=== PATIENT | female | born 1990 | race Caucasian/White ===

== ENCOUNTER 2017-06-24 17:35 | Observation (INO) | payer BC ==
[2017-06-24] MEDS ORDERED: NORMAL SALINE 1,000 ML IV ONE (17:42)
[2017-06-24 17:59] LABS: Hematocrit 40.3 % (37.0-47.0); Hemoglobin 14.1 gm/dL (12.5-16.0); Mean Cell Volume 78.7 fl (78-100); Mean Corpuscular Hemoglobin 27.5 pg (27-31); Mean Platelet Volume 8.8 fl (6.0-9.5); Neutrophil # 4.7 K/mm3 (1.3-6.0); Neutrophil % 69.6 % (42-75.0); Platelet Count 253 K/mm3 (150-450); Red Blood Count 5.12 M/mm3 (4.2-5.4); Red Cell Distribution Width 13.2 % (11.5-14.0); White Blood Count 6.7 K/mm3 (4.0-10.5)
[2017-06-24 18:13] LABS: ALT 29 U/L (19-67); AST 25 U/L (0-48); Albumin * 3.9 gm/dl (3.4-5.0); Alkaline Phosphatase * 55 U/L (50-170); Anion Gap 16.7 mmol/L (6.8-13.8); BUN/Creatinine Ratio 7.2 (9.0-21.6); Bilirubin, Total 0.3 mg/dL (0.0-1.1); Blood Urea Nitrogen 5 mg/dL (3-23); Ca. Corrected For Albumin 8.6 mg/dL (8.4-10.2); Calcium * 8.8 mg/dL (7.9-10.9); Carbon Dioxide 22.3 mmol/L (24-32.6); Chloride 105 mmol/L (97-106); Glucose * 118 mg/dL (70-110); Sodium 141 mmol/L (132-142); Total Protein 8.4 gm/dL (6.2-8.2)
--- NOTE | 2017-06-24 18:17 | ERNOTE ---
Psychological HPI - Date Date of Service: 06/24/17 - General Chief Complaint: Drug Overdose Source: Reports: patient Exam Limitations: Reports: no limitations - Immun/Allergies/Home Medications Allergies/Adverse Reactions: Allergies ondansetron [From Zofran (as hydrochloride)] Adverse Reaction (Verified 17:48) - History of Present Illness Narrative: Patient presents via EMS for an overdose. it is unclear exactly when she took the OD, she cannot tell me but the medics relate she took some pills just prior to her arrival. She states she did this because her doesn't want her. She denies any pain. She has overdosed in the past by her report. No CP or SOB > No abdominal pain. No trauma. Patient by report took alcohol and 14 10mg Ambien tablets of her own, no other substances. Time Seen by Provider: 06/24/17 17:38 Arrived by: Reports: ambulance Onset/duration: Reports: continues in ED Intent: Reports: suicide Mechanism: Reports: overdose Situational Problems: Reports: spouse Associated Symptoms: Reports: suicidal thoughts Prior Treament: Denies: recently seen Review of Systems - Review of Systems Constitutional: Absent: fever Respiratory: Absent: shortness of breath Cardiology: Absent: chest pain Gastrointestinal/Abdominal: Absent: abdominal pain Neurological: Absent: weakness All Other Systems: All systems neg except as marked - Patient's Past Medical History Patient History - Surgical Procedures: No surgical history - Social History Living Situations: home Psych History: Hx of Anxiety, Hx of Depression Alcohol Use: heavy Psychological Exam - Exam General Appearance: Present: no apparent distress, other - somnolent but answering questions. Head Exam: Present: normal inspection, no evidence of injury Neurological: Present: acid dumper II-XII nml as tested Thoughts/Hallucinations: Present: no apparent hallucination Behavior/Eye Contact/Speech: Present: avoids eye contact Eye Exam: Normal inspection: bilateral, PERRL: bilateral Ears, Nose, Throat: Present: normal ENT inspection Neck: Present: normal inspection, nontender Respiratory: Present: no respiratory distress, normal breath sounds, no accessory muscle use, lungs clear Cardiovascular/Chest: Present: normal peripheral pulses, tachycardia Gastrointestinal/Abdominal: Present: normal bowel sounds, nontender, soft Extremity Exam: Present: normal inspection Skin Exam: Present: normal color, warm/dry ED Progress - Results and Orders Patient's Lab Results:: I have reviewed the patient's lab results. - Vital Signs Patient's Vital Signs:: I have reviewed the patient's vital signs. Vital Signs: Vital Signs 06/24/17 17:40 Temperature 36.9 C Pulse Rate 132 H Respiratory 15 Rate Blood Pressure 134/72 O2 Sat by Pulse 94 Oximetry - EKG EKG read: Interp. by me EKG Comments: Sinus tachycardia, Non-specific changes, no STEMI - Progress/Reassessment Chief Complaint: Drug Overdose Progress Note-Subjective: 06/24/17 18:15 Poison control notified. Symptomatic treatment. IV fluids initiated. Protecting airway. Will need ICU obs for clearance before psych eval. 06/24/17 18:[address] Pace who will admit. Poison control notified. 06/24/17 18:36 Patietn stable, still answering questions, protecting airway Departure Clinical Impression: Overdose, Suicide gesture - Departure Disposition: [facility] Condition: Good
[2017-06-24 18:27] LABS: Cocaine Ur Negative (NEGATIVE); Urine Barbiturate Negative (NEGATIVE); Urine Benzodiazepines Negative (NEGATIVE); Urine Opiates Negative (NEGATIVE); Urine PCP Negative (NEGATIVE); Urine THC Negative (NEGATIVE)
[2017-06-24 18:35] LABS: Urine Appearance Slightly Cloudy; Urine Color Yellow
[2017-06-24 18:36] LABS: Urine Bilirubin Negative (NEGATIVE); Urine Blood 10 /ul (NEGATIVE); Urine Ketone Negative (NEGATIVE); Urine Nitrite Negative (NEGATIVE); Urine Protein Negative (NEGATIVE); Urine Specific Gravity 1.005 SP.GR. (1.005-1.010); Urine Urobilinogen Normal (NORMAL)
[2017-06-24 18:37] LABS: Urine Bacteria None Seen; Urine RBC None Seen /hpf (0-5); Urine WBC 0-5 /hpf (0-5)
[2017-06-24] MEDS ORDERED: POTASSIUM CHLORIDE 20 MEQ TABLET.SA ONE (20:21)
[2017-06-24] MEDS: POTASSIUM CHLORIDE 20 MEQ TABLET.SA PO ONE ×2 (20:24→20:32)
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
[2017-06-24] MEDS ORDERED: PANTOPRAZOLE SODIUM 40 MG in NORMAL SALINE 100 ML IV SCH (21:15)
[2017-06-24] MEDS: POTASSIUM CHLORIDE 100 ML IV SCH ×2 (22:07→23:00)
[2017-06-24 22:19] LABS: Salicylate 3.7 mg/dL (2.8-20.0)
[2017-06-25] MEDS: POTASSIUM CHLORIDE 100 ML IV SCH ×2 (00:10→01:06)
[2017-06-25] MEDS ORDERED: NICOTINE 21 MG PATC TD ONE (00:34)
[2017-06-25] MEDS ORDERED: NICOTINE 21 MG PATC TD SCH ×2 (00:45→21:00)
[2017-06-25 05:40] LABS: BUN/Creatinine Ratio 6.3 (9.0-21.6); Blood Urea Nitrogen 4 mg/dL (3-23); Calcium * 8.4 mg/dL (7.9-10.9); Chloride 105 mmol/L (97-106); Estimated Creat Clear 131.8; Glucose * 102 mg/dL (70-110); Sodium 139 mmol/L (132-142)
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
[2017-06-25 12:47] VITALS: BP 138/78
[2017-06-25] MEDS ORDERED: REMOVE PATCH 1 PATCH PATCH TP SCH (21:00)
== END 2017-06-25 11:30 | disposition home or self-care (01) ==
LOC: ER 17:35 → SCU 18:49
PROVIDERS: ADMIT Internal Medicine; ATTEND Internal Medicine
PROC: 0T9B70Z Drainage of Bladder with Drainage Device, Via Natural or Artificial Opening (ICD-10-PCS; principal; 2017-06-24)
DX: T42.6X2A Poisoning by other antiepileptic and sedative-hypnotic drugs, intentional self-harm, initial encounter (principal); F32.9 Major depressive disorder, single episode, unspecified; F10.10 Alcohol abuse, uncomplicated; E87.6 Hypokalemia; Z91.5 Personal history of self-harm; Z87.828 Personal history of other (healed) physical injury and trauma; Z68.33 Body mass index [BMI] 33.0-33.9, adult
CPT/HCPCS: 36415; 51702; 80048; 80053; 80307; 81001; 84703; 85025; 93005; 96365; 96366; 96375; 99285; G0378; G0480; G0481